=== PATIENT | female | born 1940 | race Caucasian/White ===

== ENCOUNTER 2017-10-23 08:09 | Day surgery (SDC) | payer MEDICARE, OTHER ==
[~2017-10-23 08:09] MED LIST: SUCCINYLCHOLINE CHLORIDE 100 MG/5 ML SYG IV
[2017-10-23] MEDS ORDERED: CEFAZOLIN 2 GM/50 ML (PMX) 50 ML IVPB (10:00)
[2017-10-23] MEDS ORDERED: LACTATED RINGER'S 1,000 ML IV* (10:30)
[2017-10-23] MEDS ORDERED: ETOMIDATE 20 MG INJ (10:37)
[2017-10-23] MEDS ORDERED: LIDOCAINE 1% (MDV) 20 ML INJ (10:37)
[2017-10-23] MEDS ORDERED: ROCURONIUM 50 MG INJ (10:37)
[2017-10-23] MEDS ORDERED: DEXAMETHASONE 4 MG/ML 1 ML INJ (10:54)
[2017-10-23] MEDS ORDERED: CEFAZOLIN 1 GM INJ (10:54)
[2017-10-23] MEDS ORDERED: FAMOTIDINE 20 MG INJ (10:54)
[2017-10-23] MEDS ORDERED: ONDANSETRON 4 MG INJ (10:54)
[2017-10-23] MEDS ORDERED: EPHEDrine SULFATE 50 MG/5 ML SYG (10:58)
[2017-10-23] MEDS ORDERED: ACETAMINOPHEN 1000MG/100ML IV 100 ML (11:45)
[2017-10-23] MEDS ORDERED: hydrALAzine 20 MG INJ (12:17)
[2017-10-23] MEDS ORDERED: SUGAMMADEX SODIUM 200 MG/2 ML VIAL IV (12:34)
[2017-10-23] MEDS ORDERED: NALOXONE (0.4 MG/ML) INJ (12:53)
== END 2017-10-23 15:03 | disposition home or self-care (01) ==
LOC: SDS 08:09
DX: M24.541 Contracture, right hand (principal); M24.531 Contracture, right wrist; G56.01 Carpal tunnel syndrome, right upper limb; E11.9 Type 2 diabetes mellitus without complications; I10 Essential (primary) hypertension; I69.359 Hemiplegia and hemiparesis following cerebral infarction affecting unspecified side
CPT/HCPCS: 25280; 71045; 82962